=== PATIENT | male | born 1995 | race Caucasian/White ===

== ENCOUNTER 2017-12-04 16:01 | Observation (INO) | payer OTHER ==
[~2017-12-04] VITALS: Ht 180.3 cm; Wt 93.0 kg
[2017-12-04] MEDS ORDERED: ONDANSETRON HCL 4 MG ORAL DISINTEGRATING TAB PO ONE (16:15)
[2017-12-04] MEDS ORDERED: SODIUM CHLORIDE 0.9% 1000ML 1,000 ML IV SCH (16:15)
[2017-12-04 16:26] LABS: BASOPHILS % 0.1 % (0.0-1.0); HEMATOCRIT 37.4 % (38.2-49.6); LYMPHOCYTES % 6.1 % (18.0-39.1); MEAN CORPUSCULAR HEMOGLOBIN 30.2 pg (28-32); MEAN CORPUSCULAR HGB CONC 37.4 g/dL (31-35); MEAN CORPUSCULAR VOLUME 80.8 fL (81-99); MONOCYTES # (AUTO) 0.7 (0.2-0.8); MONOCYTES % 4.3 % (4.4-11.3); NEUTROPHILS # (AUTO) 13.8 (2.1-6.9); PLATELET COUNT 283 x10e3/uL (140-360); RED BLOOD COUNT 4.63 x10e6/uL (4.3-5.7); RED CELL DISTRIBUTION WIDTH 11.9 % (11.7-14.4)
[2017-12-04 16:41] LABS: ANION GAP 14.7 mmol/L (8-16); BLOOD UREA NITROGEN 11 mg/dL (7-26); BUN/CREATININE RATIO 12 (6-25); CALCIUM 9.1 mg/dL (8.4-10.2); CARBON DIOXIDE 24 mmol/L (22-29); CHLORIDE 90 mmol/L (98-107); CREATINE KINASE 215 IU/L (30-200); CREATININE, SERUM 0.92 mg/dL (0.72-1.25); EST GLOMERULAR FILTRATION RATE > 60 ML/MIN (60-); GLUCOSE 107 mg/dL (74-118); POTASSIUM 3.7 mmol/L (3.5-5.1); SODIUM 125 mmol/L (136-145)
[2017-12-04] MEDS ORDERED: SODIUM CHLORIDE 0.9% 1000ML 2,000 ML IV SCH ×2 (17:00→19:15)
[2017-12-04 18:24] LABS: BASOPHILS % 0.1 % (0.0-1.0); HEMATOCRIT 36.1 % (38.2-49.6); HEMOGLOBIN 13.2 g/dL (14.0-18.0); LYMPHOCYTES # (AUTO) 1.2 (1.0-3.2); LYMPHOCYTES % 9.5 % (18.0-39.1); MEAN CORPUSCULAR HEMOGLOBIN 29.7 pg (28-32); MEAN CORPUSCULAR HGB CONC 36.6 g/dL (31-35); MEAN CORPUSCULAR VOLUME 81.1 fL (81-99); MONOCYTES # (AUTO) 0.5 (0.2-0.8); MONOCYTES % 4.1 % (4.4-11.3); NEUTROPHILS # (AUTO) 11.1 (2.1-6.9); NEUTROPHILS % 85.9 % (38.7-80.0); PLATELET COUNT 254 x10e3/uL (140-360); RED BLOOD COUNT 4.45 x10e6/uL (4.3-5.7); RED CELL DISTRIBUTION WIDTH 11.9 % (11.7-14.4)
[2017-12-04 18:38] LABS: BLOOD UREA NITROGEN 9 mg/dL (7-26); BUN/CREATININE RATIO 11 (6-25); CARBON DIOXIDE 21 mmol/L (22-29); CHLORIDE 96 mmol/L (98-107); CREATINE KINASE 229 IU/L (30-200); EST GLOMERULAR FILTRATION RATE > 60 ML/MIN (60-); GLUCOSE 95 mg/dL (74-118); SODIUM 126 mmol/L (136-145)
[2017-12-04] MEDS: SODIUM CHLORIDE 0.9% 1000ML 1,000 ML IV SCH (20:37)
[2017-12-04] MEDS ORDERED: FAMOTIDINE 20 MG TAB ONE (20:48)
[2017-12-04] MEDS ORDERED: FAMOTIDINE 20 MG TAB PO ONE (21:00)
[2017-12-04] MEDS ORDERED: NO HOME MEDS (21:00)
[2017-12-05] VITALS: BP 110/52
[2017-12-05] MEDS: SODIUM CHLORIDE 0.9% 1000ML 1,000 ML IV SCH ×2 (03:22→08:20)
[2017-12-05 03:58] VITALS: BP 110/52
[2017-12-05 04:00] VITALS: BP 107/54
[2017-12-05 07:21] LABS: ANION GAP 10.5 mmol/L (8-16); BLOOD UREA NITROGEN 11 mg/dL (7-26); BUN/CREATININE RATIO 11 (6-25); CALCIUM 8.8 mg/dL (8.4-10.2); CARBON DIOXIDE 25 mmol/L (22-29); CHLORIDE 107 mmol/L (98-107); CREATININE, SERUM 0.97 mg/dL (0.72-1.25); EST GLOMERULAR FILTRATION RATE > 60 ML/MIN (60-); GLUCOSE 93 mg/dL (74-118); POTASSIUM 4.5 mmol/L (3.5-5.1); SODIUM 138 mmol/L (136-145)
--- NOTE | 2017-12-05 07:26 | History and Physical ---
PRIMARY CARE PHYSICIAN: None CHIEF COMPLAINT: Shortness of breath and fatigue. 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 The patient had to leave the job due to his symptoms. Consumed a lot of Gatorade and oranges. Later on, vomited and therefore came to the hospital. Here he was found to have acute rhabdomyolysis and dehydration. He was admitted for further evaluation and management. PAST MEDICAL HISTORY: Atypical chest pain, utilizing Holter monitor use with no positive findings. PAST SURGICAL HISTORY: None. ALLERGIES: PER ELECTRONIC MEDICAL RECORD. FAMILY HISTORY/SOCIAL HISTORY: Patient is single. Occasional alcohol. Occasional cigarettes. No illicits. Works in construction. MEDICATIONS: Per electronic medical record. REVIEW OF SYSTEMS: Denies any chest pain. Denies any fever, chills or sweats. PHYSICAL EXAMINATION VITAL SIGNS: Reviewed. GENERAL: A tired-appearing man resting in bed. HEENT: Anicteric. Pupils respond to light. No oral lesions. CARDIOVASCULAR: Normal S1 and S2. LUNGS: Moderate breath sounds. ABDOMEN: Soft and nondistended. He has mild tenderness in the left and right abdomen. No rebound or guarding. EXTREMITIES: No edema. SKIN: Dry. PSYCHIATRIC: Flat affect. LABS: Reviewed. MEDICATIONS: Reviewed. ASSESSMENT: A 22-year-old man with: 1. Hyponatremia. 2. Severe dehydration. 3. Acute rhabdomyolysis. 4. Overweight state. 5. Leukocytosis. PLAN 1. Received 3 L bolus in the ER and then fluids overnight. Will obtain labs this morning. 2. Hyponatremia is improving. 3. Follow up CPK this morning. 4. Follow up WBC this morning. 5. I have discussed with the patient the need to consume fluids before, during and after exertion or excess sun exposure. 6. Possible discharge later today. Job#: [id number] PR
[2017-12-05 07:51] VITALS: BP 128/61
[2017-12-05 09:06] VITALS: BP 128/61
[2017-12-05] MEDS ORDERED: SODIUM CHLORIDE 0.9% 1000ML 1,000 ML IV ONE ×2 (10:15)
[2017-12-05 11:33] VITALS: BP 139/70
--- NOTE | 2017-12-07 13:17 | Discharge Summary ---
PRINCIPAL DIAGNOSES 1. Hyponatremia. 2. Severe dehydration. 3. Acute rhabdomyolysis. 4. Overweight state. 5. Leukocytosis. SECONDARY DIAGNOSIS: None. CHIEF COMPLAINT: Shortness of breath and fatigue. HISTORY OF PRESENT ILLNESS: A 22-year-old man with shortness of breath and fatigue. Please refer to the H\T\P for further details. HOSPITAL COURSE: Patient had hyponatremia, severe hydration and acute rhabdomyolysis, received aggressive fluid rehydration and did well. Rhabdomyolysis improved, and dehydration improved. Sodium improved. Patient subsequently was transitioned home, counseled on consuming lots of fluid before, during and after exercise, activity and sun exposure. CONDITION ON DISCHARGE: Stable and improving. DISCHARGE LOCATION: Home. DISCHARGE MEDICATIONS: Per electronic medical records. FOLLOWUP: With primary care doctor and follow up with me in 1 week. ALONZO WING MD Job#: [id number] EV
== END 2017-12-05 14:05 | disposition home or self-care (01) ==
LOC: ER 16:01 → ERHOLD 18:59 → IMCU 23:33
PROVIDERS: ADMIT Internal Medicine; ATTEND Internal Medicine
DX: E87.1 Hypo-osmolality and hyponatremia (principal); E86.0 Dehydration; X30.XXXA Exposure to excessive natural heat, initial encounter; Y93.89 Activity, other specified; Y92.89 Other specified places as the place of occurrence of the external cause; M62.82 Rhabdomyolysis; E66.3 Overweight; D72.829 Elevated white blood cell count, unspecified
CPT/HCPCS: 36415 ×2; 80048 ×2; 82550 ×2; 83735; 84295; 85025; 93005; 99284; G0378 ×2; J7030 ×2

== ENCOUNTER 2019-03-05 16:05 | Inpatient (IN) | payer BC ==
[~2019-03-05] VITALS: Ht 180.3 cm; Wt 77.1 kg
[~2019-03-05 16:05] MED LIST: NO HOME MEDS
[2019-03-05] MEDS ORDERED: ONDANSETRON HCL INJ 2MG/ML 2ML 2 MG/ML VIAL IV STA (16:16)
[2019-03-05] MEDS ORDERED: MORPHINE SULFATE INJ 4 MG/ML INJ 1ML IV STA (16:16)
[2019-03-05] MEDS ORDERED: PANTOPRAZOLE 40 MG 10ML VIAL IV STA (16:16)
[2019-03-05] MEDS ORDERED: SODIUM CHLORIDE 0.9% 1000ML 1,000 ML IV STA (16:16)
[2019-03-05] MEDS ORDERED: MORPHINE SULFATE INJ 4 MG/ML INJ 1ML ONE (16:19)
[2019-03-05] MEDS ORDERED: FAMOTIDINE 20 MG/2 ML VIAL IV ONE (16:19)
[2019-03-05] MEDS ORDERED: ONDANSETRON HCL INJ 2MG/ML 2ML 2 MG/ML VIAL ONE (16:19)
[2019-03-05] MEDS ORDERED: SODIUM CHLORIDE 0.9% 1000ML 1,000 ML ONE (16:20)
[2019-03-05 16:29] LABS: BASOPHILS % 0.1 % (0.0-1.0); HEMATOCRIT 48.4 % (38.2-49.6); HEMOGLOBIN 17.5 g/dL (14.0-18.0); LYMPHOCYTES # (AUTO) 1.2 (1.0-3.2); LYMPHOCYTES % 11.9 % (18.0-39.1); MEAN CORPUSCULAR HGB CONC 36.2 g/dL (31-35); MEAN CORPUSCULAR VOLUME 85.7 fL (81-99); MONOCYTES # (AUTO) 0.7 (0.2-0.8); MONOCYTES % 6.5 % (4.4-11.3); NEUTROPHILS # (AUTO) 8.5 (2.1-6.9); NEUTROPHILS % 81.2 % (38.7-80.0); PLATELET COUNT 353 x10e3/uL (140-360); RED BLOOD COUNT 5.65 x10e6/uL (4.3-5.7); RED CELL DISTRIBUTION WIDTH 12.1 % (11.7-14.4)
[2019-03-05] MEDS ORDERED: FAMOTIDINE 20 MG/2 ML VIAL IV NR (16:30)
[2019-03-05 16:34] LABS: AMPHETAMINES SCREEN,URINE NEGATIVE (NEGATIVE); BENZODIAZEPINES SCREEN,URINE NEGATIVE (NEGATIVE); PHENCYCLIDINE SCREEN,URINE NEGATIVE (NEGATIVE)
[2019-03-05 16:43] LABS: ALANINE AMINOTRANSFERASE 82 IU/L (0-55); ALBUMIN/GLOBULIN RATIO 1.8 (0.8-2.0); ALKALINE PHOSPHATASE 54 IU/L (40-150); AMYLASE 27 U/L (25-125); ANION GAP 14.1 mmol/L (8-16); BLOOD UREA NITROGEN 7 mg/dL (7-26); BUN/CREATININE RATIO 7 (6-25); CARBON DIOXIDE 27 mmol/L (22-29); CHLORIDE 97 mmol/L (98-107); CREATININE, SERUM 0.99 mg/dL (0.72-1.25); EST GLOMERULAR FILTRATION RATE > 60 ML/MIN (60-); GLUCOSE 108 mg/dL (74-118); LIPASE 10 U/L (8-78); POTASSIUM 4.1 mmol/L (3.5-5.1); SODIUM 134 mmol/L (136-145)
[2019-03-05 16:45] LABS: BILIRUBIN,URINE NEGATIVE (NEGATIVE); CLARITY,URINE CLEAR (CLEAR); COLOR,URINE YELLOW (YELLOW); KETONES,URINE NEGATIVE (NEGATIVE); LEUKOCYTE ESTERASE ,URINE NEGATIVE (NEGATIVE); NITRITE,URINE NEGATIVE (NEGATIVE); PROTEIN,URINE DIPSTICK NEGATIVE (NEGATIVE); URINE UROBILINOGEN 1 mg/dL (0.2 - 1)
[2019-03-05 16:47] LABS: EPITHELIAL CELLS,URINE RARE /LPF
[2019-03-05 17:03] LABS: CREATINE KINASE 12764 IU/L (30-200)
--- NOTE | 2019-03-05 17:22 | Diagnostic Imaging Report ---
Right upper quadrant abdominal ultrasound Clinical History: Abdominal pain Discussion: Sonographic evaluation of the right upper quadrant of the abdomen is performed. The liver has normal size and measures 15.8 cm in length. The liver echotexture is normal, without focal mass. There is no intra or extrahepatic biliary dilatation. The common bile duct measures 3 mm. The gallbladder has normal appearance, without wall thickening, stones, or pericholecystic fluid. The main portal vein diameter is normal, measuring 10 mm. The pancreatic head, body, and proximal tail demonstrate no abnormality. There is no ascites. The right kidney measures 11.7 cm in length and is normal in size. There is no renal mass, hydronephrosis, or shadowing renal calculus. Segments of the inferior vena cava and aorta visualized demonstrate no abnormality. Impression: Normal right upper quadrant abdominal ultrasound. Signed by: Dr. Evelio Sahni MD on 03/05/2019 5:18 PM
[2019-03-05] MEDS ORDERED: SODIUM CHLORIDE 0.9% 1000ML 1,000 ML IV SCH (17:30)
--- NOTE | 2019-03-05 17:39 | NUR ---
updated plan of care, ivf's running.
--- NOTE | 2019-03-05 17:42 | Diagnostic Imaging Report ---
Exam: CT abdomen and pelvis Clinical history: Abdominal pain Technique: Helical images of the abdomen and pelvis were obtained after IV contrast administration DOSE REDUCTION: The exams was performed according to the departmental dose-optimization program which includes automated exposure control, adjustment of the mA and/or kV according to patient size and/or use of iterative reconstruction technique. Findings: The lung bases are clear. There is no evidence of pleural effusion. The cardiac size is within normal limits. The liver, spleen, pancreas, gallbladder, adrenal glands, and kidneys are unremarkable. The small and large bowels are normal in caliber without evidence of obstruction. The appendix was not clearly identified. However, no evidence of acute inflammatory changes are noted in the region of the cecum. There is no evidence of lymphadenopathy or free fluid. The aorta and IVC are normal in caliber. Impression: 1. Unremarkable CT of abdomen and pelvis. Signed by: Dr. Evelio Sahni MD on 03/05/2019 5:39 PM
[2019-03-05] MEDS: MORPHINE SULFATE INJ 4 MG/ML INJ 1ML IV PRN (18:37)
[2019-03-05] MEDS: SODIUM CHLORIDE 0.9% 1000ML 1,000 ML IV SCH (18:37)
[2019-03-05] MEDS: ONDANSETRON HCL INJ 2MG/ML 2ML 2 MG/ML VIAL IV PRN (18:37)
--- OUTSIDE RECORDS SUMMARY | 2019-03-05 18:39 | XMS REPORT ---
[facility] Address Unknown Phone Unavailable Care Team Providers Care Bone Glue Maker Name Role Phone Radha KWON Unavailable Unavailable Problems This patient has no known problems. Allergies, Adverse Reactions, Alerts This patient has no known allergies or adverse reactions. Medications This patient has no known medications. Results Test Description Test Time Test Comments Text Results Atomic Results Result Comments CT ABDOMEN/PELVIS W 2019-03-05 17:38:00 [place] [id number] Patient Name: RACHELLE RUSSO MR #: [id number] : 1995 Age/Sex: 23/M Req #: [id number] Adm Physician: Ordered by: ROLY LOPEZ NP Report #: [id number] Location: ER Room/Bed: Procedure: [id number] CT/CT ABDOMEN/PELVIS W Exam Date: 03/05/19 Exam Time: 1700 REPORT STATUS: Signed Exam: CT abdomen and pelvis Clinical history: Abdominal pain Technique: Helical images of the abdomen and pelvis were obtained after IV contrast administration DOSE REDUCTION: The exams was performed according to the departmental dose-optimization program which includes automated exposure control, adjustment of the mA and/or kV according to patient size and/or use of iterative reconstruction technique. Findings: The lung bases are clear. There is no evidence of pleural effusion. The cardiac size is within normal limits. The liver, spleen, pancreas, gallbladder, adrenal glands, and kidneys are unremarkable. The small and large bowels are normal in caliber without evidence of obstruction. The appendix was not clearly identified. However, no evidence of acute inflammatory changes are noted in the region of the cecum. There is no evidence of lymphadenopathy or free fluid. The aorta and IVC are normal in caliber. Impression: 1. Unremarkable CT of abdomen and pelvis. Signed by: Dr. Evelio Sahni MD on 03/05/2019 5:39 PM Dictated By: GERMANIA SAHNI MD 38 Transcribed By: ASHLEY on 03/05/191738 COPY TO: ROLY LOPEZ METAL REFINER US GALLBLADDER 2019-03-05 17:18:00 [place] [id number] Patient Name: RACHELLE RUSSO MR #: [id number] : 1995 Age/Sex: 23/M Req #: [id number] Adm Physician: Ordered by: ROLY LOPEZ METAL REFINER Report #: [id number] Location: ER Room/Bed: Procedure: [id number] US/US GALLBLADDER Exam Date: 03/05/19 Exam Time: 1654 REPORT STATUS: Signed Right upper quadrant abdominal ultrasound Clinical History: Abdominal pain Discussion: Sonographic evaluation of the right upper quadrant of the abdomen is performed. The liver has normal size and measures 15.8 cm in length. The liver echotexture is normal, without focal mass. There is no intra or extrahepatic biliary dilatation. The common bile duct measures 3 mm. The gallbladder has normal appearance, without wall thick ening, stones, or pericholecystic fluid. The main portal vein diameter is normal, measuring 10 mm. The pancreatic head, body, and proximal tail demonstrate no abnormality. There is no ascites. The right kidney measures 11.7 cm in length and is normal in size. There is no renal mass, hydronephrosis, or shadowing renal calculus. Segments of the inferior vena cava and aorta visualized demonstrate no abnormality. Impression: Normal right upper quadrant abdominal ultrasound. Signed by: Dr. Evelio Sahni MD on 03/05/2019 5:18 PM Dictated By: BRIDGETTE SAHNI MD Marti ctronically Signed By: BRIDGETTE SAHNI MD on 03/05/191717 Transcribed By: ASHLEY on 03/05/191717 COPY TO: ROLY LOPEZ NP
[2019-03-05 20:18] VITALS: BP 166/83
[2019-03-05 21:02] VITALS: BP 166/83
[2019-03-05 21:13] VITALS: BP 166/83
[2019-03-05] MEDS ORDERED: SODIUM CHLORIDE 0.9% 50ML 50 ML ONE (22:03)
[2019-03-05] MEDS ORDERED: IOPAMIDOL 370 MG/ML 200 ML INFUS..BTL INJ ONE (22:03)
[2019-03-06] VITALS (9 sets, daily range): BP systolic 135–159; BP diastolic 54–96
[2019-03-06] MEDS: ONDANSETRON HCL INJ 2MG/ML 2ML 2 MG/ML VIAL IV PRN ×3 (00:15→15:00)
[2019-03-06] MEDS: SODIUM CHLORIDE 0.9% 1000ML 1,000 ML IV SCH ×5 (00:16→20:16)
[2019-03-06] MEDS: MORPHINE SULFATE INJ 4 MG/ML INJ 1ML IV PRN ×3 (00:16→15:00)
[2019-03-06 00:51] LABS: CREATINE KINASE MB 0.9 ng/mL (0-5.0)
[2019-03-06 05:08] LABS: BASOPHILS % 0.4 % (0.0-1.0); EOSINOPHILS # (AUTO) 0.1 (0.0-0.4); EOSINOPHILS % 0.6 % (0.0-6.0); HEMATOCRIT 45.9 % (38.2-49.6); LYMPHOCYTES # (AUTO) 2.5 (1.0-3.2); MEAN CORPUSCULAR HEMOGLOBIN 30.5 pg (28-32); MEAN CORPUSCULAR HGB CONC 34.9 g/dL (31-35); MEAN CORPUSCULAR VOLUME 87.6 fL (81-99); MONOCYTES # (AUTO) 0.9 (0.2-0.8); NEUTROPHILS # (AUTO) 4.8 (2.1-6.9); NEUTROPHILS % 57.8 % (38.7-80.0); PLATELET COUNT 299 x10e3/uL (140-360); RED BLOOD COUNT 5.24 x10e6/uL (4.3-5.7); RED CELL DISTRIBUTION WIDTH 12.4 % (11.7-14.4)
[2019-03-06 05:40] LABS: ALANINE AMINOTRANSFERASE 63 IU/L (0-55); ALBUMIN 4.2 g/dL (3.5-5.0); ALBUMIN/GLOBULIN RATIO 1.8 (0.8-2.0); ALKALINE PHOSPHATASE 44 IU/L (40-150); ANION GAP 12.3 mmol/L (8-16); BLOOD UREA NITROGEN 6 mg/dL (7-26); BUN/CREATININE RATIO 6 (6-25); CALCIUM 9.2 mg/dL (8.4-10.2); CARBON DIOXIDE 30 mmol/L (22-29); CHLORIDE 102 mmol/L (98-107); CREATININE, SERUM 0.98 mg/dL (0.72-1.25); EST GLOMERULAR FILTRATION RATE > 60 ML/MIN (60-); GLUCOSE 101 mg/dL (74-118); POTASSIUM 4.3 mmol/L (3.5-5.1); SODIUM 140 mmol/L (136-145)
--- NOTE | 2019-03-06 07:05 | NUR ---
pt awake resp even and unlabored at this time no distress noted, pt has no c/o pain at this time. call light in reach.
[2019-03-06 15:51] LABS: CREATINE KINASE 6758 IU/L (30-200)
--- NOTE | 2019-03-06 19:02 | NUR ---
report given to oncoming nurse for continued care.
[2019-03-07] VITALS (7 sets, daily range): BP systolic 134–147; BP diastolic 71–92
[2019-03-07] MEDS: ONDANSETRON HCL INJ 2MG/ML 2ML 2 MG/ML VIAL IV PRN ×3 (00:07→21:41)
[2019-03-07] MEDS: MORPHINE SULFATE INJ 4 MG/ML INJ 1ML IV PRN ×2 (00:07→06:08)
[2019-03-07] MEDS: SODIUM CHLORIDE 0.9% 1000ML 1,000 ML IV SCH ×5 (01:04→20:01)
[2019-03-07] MEDS: ACETAMINOPHEN 325 MG TAB PO PRN ×2 (08:32→17:05)
--- NOTE | 2019-03-07 19:07 | NUR ---
Report given to oncoming nurse of patient's status. Resting in bed. Side rails upx2, call light within reach. NO s/s of acute distress noted.
[2019-03-08] MEDS: MORPHINE SULFATE INJ 4 MG/ML INJ 1ML IV PRN (00:27)
[2019-03-08 00:33] VITALS: BP 145/84
[2019-03-08] MEDS: SODIUM CHLORIDE 0.9% 1000ML 1,000 ML IV SCH ×3 (01:01→08:06)
[2019-03-08 05:34] LABS: ANION GAP 14.4 mmol/L (8-16); BLOOD UREA NITROGEN 7 mg/dL (7-26); BUN/CREATININE RATIO 8 (6-25); CALCIUM 9.6 mg/dL (8.4-10.2); CARBON DIOXIDE 29 mmol/L (22-29); CHLORIDE 101 mmol/L (98-107); CREATININE, SERUM 0.92 mg/dL (0.72-1.25); EST GLOMERULAR FILTRATION RATE > 60 ML/MIN (60-); GLUCOSE 89 mg/dL (74-118); POTASSIUM 4.4 mmol/L (3.5-5.1); SODIUM 140 mmol/L (136-145)
[2019-03-08 06:22] VITALS: BP 135/86
[2019-03-08 07:45] VITALS: BP 157/95
[2019-03-08 09:30] VITALS: BP 157/95
[2019-03-08 11:15] VITALS: BP 159/89
--- NOTE | 2019-03-08 13:57 | Discharge Summary ---
ADMIT DIAGNOSES: 1. Acute rhabdomyolysis. 2. Heat exhaustion. DISCHARGE DIAGNOSES: 1. Rhabdomyolysis, resolving. 2. Heat exhaustion, resolved. HOSPITAL COURSE: This is a 23-year-old white man, who was initially admitted to [facility] with a diagnosis of acute rhabdomyolysis, likely secondary to right shoulder muscle injury and heat exhaustion. During this hospitalization, he improved dramatically with intravenous fluids. On admission, his creatine kinase was 12,764. On the day of discharge it was 2721. The patient states he was experiencing much less muscle pain on the day of discharge. CONDITION ON DISCHARGE: Stable. One day prior to discharge, his lactic acid level was slightly elevated at 19.1. DISCHARGE MEDICATIONS: None. FOLLOWUP INSTRUCTIONS: The patient is instructed to follow up with his attending namely myself, Dr. Javier Ulloa within the next 7-10 days. The patient was given order for repeat serum creatinine, creatine kinase, and basic metabolic profile to be performed on , March 13, 2019. The patient is instructed to stay well hydrated. The patient was also instructed to avoid all NSAIDs until further notice. The patient is also advised to avoid any prolonged heat exposure under further notice. The patient resolved correctly MD IDA Pacheco/VIELKA /[id number] MTDBruna
--- NOTE | 2019-03-08 14:20 | NUR ---
Patient was given discharge instructions and understands to f/u for labs. IV to the left ac was removed with tip intact.,
== END 2019-03-08 14:46 | disposition home or self-care (01) | DRG 923 ==
LOC: ER 16:05 → ERHOLD 18:01 → MED/SURG2 19:43
DX: T67.5XXA Heat exhaustion, unspecified, initial encounter (principal); M62.82 Rhabdomyolysis; M54.9 Dorsalgia, unspecified
CPT/HCPCS: 36415; 74177; 76705; 80048; 80053; 80307; 81001; 82150; 82550; 82553; 83605; 83690; 84484; 85025; 87086; 99284; J2270; J2405; J7030; Q9967